=== PATIENT | male | born 1970 | race Caucasian/White ===

== ENCOUNTER 2018-05-31 13:39 | Emergency (ER) | payer BC ==
[~2018-05-31] VITALS: Ht 180.3 cm; Wt 87.1 kg
[2018-05-31 14:05] VITALS: BP 145/90; Ht 180.3 cm; Wt 87.1 kg
== END 2018-05-31 15:49 | disposition home or self-care (01) ==
LOC: ED 13:39
DX: S82.832A Other fracture of upper and lower end of left fibula, initial encounter for closed fracture (principal); S82.302A Unspecified fracture of lower end of left tibia, initial encounter for closed fracture; M93.972 Osteochondropathy, unspecified, left ankle and foot; V87.8XXA Person injured in other specified noncollision transport accidents involving motor vehicle (traffic), initial encounter; Y93.55 Activity, bike riding; Y92.413 State road as the place of occurrence of the external cause; Y99.8 Other external cause status
CPT/HCPCS: Q0092